=== PATIENT | male | born 1995 | race Two or more races ===

== ENCOUNTER 2021-10-14 21:26 | Emergency (ER) | payer OTHER ==
[~2021-10-14] VITALS: Ht 170.2 cm; Wt 83.9 kg
[2021-10-14 21:27] VITALS: BP 123/69
[2021-10-14 22:55] LABS: Basophils # (auto) 0.1 10 ^3/uL (0-0.2); Basophils % (auto) 0.6 % (0.0-2.0); Eosinophils # (auto) 0 10 ^3/uL (0-0.8); Eosinophils % (auto) 0.5 % (0.0-7.0); Hematocrit 38.1 % (41.0-53.0); Hemoglobin 13.5 g/dL (13.5-17.5); Lymphocytes # (auto) 1.2 10 ^3/uL (0.4-5.4); Lymphocytes % (auto) 12.5 % (10.0-50.0); Mean Corpuscular Hemoglobin 30.8 pg (28.0-32.0); Mean Corpuscular Hgb Conc. 35.5 g/dL (32.0-36.0); Mean Corpuscular Volume 86.8 fL (80.0-100.0); Monocytes % (auto) 10.4 % (0.0-12.0); Neutrophils # (auto) 7.3 10 ^3/uL (1.6-8.6); Nucleated Red Blood Cells % 0.1 %; Red Blood Cells 4.39 10^6/uL (4.5-5.90); Red Cell Distribution Width 14.2 % (11.8-14.3); White Blood Cell 9.6 10^3/uL (4.4-10.8)
[2021-10-14 23:13] LABS: BUN/Creatinine Ratio 19.8; Calcium 9.3 mg/dL (8.5-10.1); Potassium 4.1 mmol/L (3.5-5.1)
[2021-10-14 23:16] LABS: Bilirubin, Total 0.6 mg/dL (0.2-1.0); Total Protein 7.7 g/dL (6.4-8.2)
[2021-10-14] MEDS ORDERED: DOXY100C PO (23:50)
== END 2021-10-15 04:31 | disposition left against medical advice (07) ==
LOC: EDBD 21:26 → ER 21:26
DX: I88.0 Nonspecific mesenteric lymphadenitis (principal); N50.811 Right testicular pain; N50.812 Left testicular pain; Z53.29 Procedure and treatment not carried out because of patient's decision for other reasons
CPT/HCPCS: 36415; 74176; 76870; 80053; 83690; 85025